=== PATIENT | female | born 1955 | race American Indian/Alaskan Native ===

== ENCOUNTER 2018-03-06 00:05 | Emergency (ER) | payer BC ==
[2018-03-06 00:37] VITALS: BP 152/64
--- NOTE | 2018-03-06 03:45 | Emergency Department Report ---
Blank Doc - Documentation Documentation: Patient is a 62-year-old black female is presented with right eye blurriness. Patient states that she turned on the lights tonight and she feels as though this film over the right eye. Patient states she washed her eye out but does not feel as though there is a foreign body in the eye. Patient is denying any acute pain headache. Patient states she is worried that she is having a stroke however there's been no slurred speech or focal neurological deficits. Brief fundal exam vessels a present and appear normal. The patient does not have any areas that grossly look abnormal on her funduscopic exam. Pressures will be checking the patient be reassessed. Re
--- NOTE | 2018-03-06 04:42 | Emergency Department Report ---
Eye Injury/Foreign Body - [facility] Eye Location: Right Severity: Mild Tetanus Status: Up to Date Eye Symptoms: Eye Pain: No, Blurred Vision: Yes, Eye Redness: No, Grinding/ Hammering Metal: No, Used Eye Protection: No, Contact Lens Use: No, Recalls Injury: No, Photophobia: No Other History: Patient is a 62-year-old black female is presented with right eye blurriness. Patient states that she turned on the lights tonight and she feels as though this film over the right eye. Patient states this has not happened since the first episode Patient states she washed her eye out but does not feel as though there is a foreign body in the eye. Patient is denying any acute pain headache. She denies any trauma to the eye. She states she wears reading glasses but no contacts or medicated glasses. Patient states she has surgeon some years ago. ED Review of Systems ROS: Stated complaint: BLURRED VISION Other details as noted in HPI Constitutional: denies: chills, fever Eyes: denies: eye pain, eye discharge, vision change ENT: denies: ear pain, throat pain Respiratory: denies: cough, shortness of breath, wheezing Cardiovascular: denies: chest pain, palpitations Endocrine: no symptoms reported Gastrointestinal: denies: abdominal pain, nausea, diarrhea Genitourinary: denies: urgency, dysuria, discharge Musculoskeletal: denies: back pain, joint swelling, arthralgia Skin: denies: rash, lesions Neurological: denies: headache, weakness, paresthesias Psychiatric: denies: anxiety, depression Hematological/Lymphatic: denies: easy bleeding, easy bruising ED Past Medical Hx - Past Medical History Previous Medical History?: No - Surgical History Past Surgical History?: No - Social History Smoking Status: Former Smoker Substance Use Type: Alcohol - Medications Home Medications: Home Medications Medication Instructions Recorded Confirmed Last Taken Type Naproxen [Naprosyn] 500 mg PO BID #30 tablet 11/26/13 Unknown Rx traMADol [Ultram 50 MG tab] 50 mg PO Q6HR PRN #30 tablet 11/26/13 Unknown Rx Eye Injury Exam - Exam General: Vital signs noted. No distress. Alert and acting appropriately. - Visual Acuity Right Vision Acuity Degree: 20/50 Eye Exam: Neither Injection, Neither Chemosis, Neither Abnormal Pupil, Neither EOMI, Neither Eye Foreign Body, Neither Lid Foreign Body, Neither Mucous Discharge, Neither Purulent Discharge, Neither Corneal Edema, Neither Photophobia Exam: EYE Pressure assessed with tonopen: 10 Left Vision Acuity Degree: 20/25 Eye Exam: Neither Injection, Neither Chemosis, Neither Abnormal Pupil, Neither EOMI, Neither Eye Foreign Body, Neither Lid Foreign Body, Neither Mucous Discharge, Neither Purulent Discharge, Neither Fluorescein Uptake, Neither Fluorescein Uptake (slit lamp), Neither Cell/Flare (slit lamp), Neither Corneal Edema, Neither Photophobia Exam: tonopen:15 Bilateral Vision Acuity Degree: 20/25 ED Course Vital Signs 03/06/18 00:27 Temperature 98.3 F Pulse Rate 84 Respiratory 16 Rate Blood Pressure 152/64 O2 Sat by Pulse 97 Oximetry ED Medical Decision Making - Medical Decision Making 62-year-old female presents with an episode of blurred vision. ED course: I exam in the ED was nonconclusive. Os patient had no eye trauma, no loss of vision and ED. Discussed patient wi some low disease. Patient states she had an appraiser real estate did the surgery about 2 years ago and she can follow-up with them. I also gave her a referral for an [employer]raiser real [employer] in case she needed it. Patient is having no eye pain loss of vision prior to discharge. Patient had no neurological symptoms no neuro deficit in the ED. Critical care attestation.: If time is entered above; I have spent that time in minutes in the direct care of this critically ill patient, excluding procedure time. ED Disposition Clinical Impression: Blurred vision, right eye Disposition: DC-01 TO HOME OR SELFCARE Is pt being admited?: No Does the pt Need Aspirin: No Condition: Stable Instructions: Blurred Vision (ED), Glaucoma (ED) Additional Instructions: Make sure to follow up with the [employer]raiser real estate as discussed. Take all your medications as you've been prescribed. If you have any worsening symptoms or develop new symptoms please return to ED immediately. Referrals: JOYCE MATOS MD [Primary Care Provider] - 3-5 Days MAXIMO FREEDMAN MD [Staff Physician] - 3-5 Days Forms: Work/School Release Form(ED) Time of Disposition: 04:43
== END 2018-03-06 04:55 | disposition home or self-care (01) ==
LOC: ED 00:05
DX: H53.8 Other visual disturbances (principal); Z87.891 Personal history of nicotine dependence
CPT/HCPCS: 99282